=== PATIENT | female | born 1955 | race Caucasian/White ===

== ENCOUNTER 2016-05-24 04:52 | Emergency (ER) | payer BC ==
[2013-07-26 13:46] VITALS: BMI 129.2
[~2016-05-24 04:52] MED LIST: ADVAIR 500/501 DISK INH; ALLEGRA180 MG PO; CARTIA XT180 MG PO; COUMADIN5 MG PO; COZAAR100 MG PO; GLIPIZIDE10 MG; GLUCOTROL 5 MG T5 MG PO; INVOKANA300 MG PO; MAXZIDE-25 MG T1 TAB PO; NORCO 10/325 TA1 TA1 PO; OXYCODONE HCL5 MG PO; PRILOSEC20 MG PO; VICTOZA0.6 MG/0.1 SQ; ZYLOPRIM100 MG PO
[2016-05-24 05:42] LABS: BASOPHILS 0.3 % (0.0-2.0); EOSINOPHILS 1.7 % (0-7); HEMATOCRIT 37.8 % (36.0-48.0); HEMOGLOBIN 12.4 g/dL (12-16); IMMATURE GRANULOCYTES 0.1 % (0-5); LYMPHOCYTES 10.4 % (15-50); MCH 29.5 pg (26.0-34.0); MCHC 32.8 g/dL (31.0-37.0); MEAN PLATELET VOLUME 10.3 fL (7.4-10.4); MONOCYTES 8.8 % (2-11); NEUTROPHILS 78.7 % (40-80); RDW 15.5 % (11.5-14.5)
[2016-05-24 05:59] LABS: PLATELET COUNT 224 10x3/uL (130-400)
[2016-05-24 06:08] LABS: ALBUMIN 3.3 g/dL (3.4-5.0); ALKALINE PHOSPHATASE 139 U/L (46-116); ALT (SGPT) 100 U/L (10-68); BILIRUBIN - TOTAL 0.61 mg/dL (0.2-1.3); CALC OSMOLALITY 292 mosm/kg (275-300); CALCIUM 9.3 mg/dL (8.5-10.1); CARBON DIOXIDE 25.5 mmol/L (21.0-32.0); CHLORIDE - SERUM 108 mmol/L (98-107); CREATININE - SERUM 1.2 mg/dL (0.6-1.3); POTASSIUM - SERUM 3.9 mmol/L (3.5-5.1); PROTEIN - SERUM 6.5 g/dL (6.4-8.2); SODIUM 142 mmol/L (136-145); UREA NITROGEN 31 mg/dL (7-18); eGFR NON AFRICAN AMERICAN 48 mL/min (90-120)
[2016-05-24 06:14] LABS: GLUCOSE 153 mg/dL (74-106)
[2016-05-24 06:16] LABS: AMYLASE - SERUM 28 U/L (25-115); LIPASE 181 U/L (73-393); PRO BNP 17 pg/mL (0-125)
[2016-05-24 06:17] LABS: TROPONIN-I < 0.017 ng/mL (0.000-0.060)
== END 2016-05-24 06:34 | disposition home or self-care (01) ==
LOC: D.ER 04:52
PROVIDERS: Family Medicine
DX: K21.9 Gastro-esophageal reflux disease without esophagitis (principal); Z90.49 Acquired absence of other specified parts of digestive tract; I10 Essential (primary) hypertension; E11.9 Type 2 diabetes mellitus without complications

== ENCOUNTER → 2016-08-07 18:41 | Outpatient (CLI) | payer BC ==
[2013-07-26 13:46] VITALS: BMI 129.2
[2016-08-07 19:14] LABS: HEMOGLOBIN A1C 7.1 % (4.8-6.0)
== END | disposition home or self-care (01) ==
LOC: D.LABREF 18:41
PROVIDERS: Orthopaedic Surgery Sports Medicine
DX: M17.12 Unilateral primary osteoarthritis, left knee (principal); E11.9 Type 2 diabetes mellitus without complications

== ENCOUNTER → 2018-01-28 14:04 | Outpatient (CLI) | payer BC ==
[2013-07-26 13:46] VITALS: BMI 129.2
[2018-01-28 14:55] LABS: BASOPHILS 0.5 % (0-2); EOSINOPHILS 6.4 % (0-7); HEMATOCRIT 40.5 % (36.0-48.0); HEMOGLOBIN 13.4 g/dL (12-16); IMMATURE GRANULOCYTES 0.1 % (0-5); LYMPHOCYTES 15.6 % (15-50); MCH 29.9 pg (26.0-34.0); MCHC 33.1 g/dL (31.0-37.0); MCV 90.4 fL (80.0-100.0); MEAN PLATELET VOLUME 10.1 fL (7.4-10.4); MONOCYTES 8.9 % (2-11); NEUTROPHILS 68.5 % (40-80); RBC 4.48 10x6/uL (4.00-5.40); RDW 15.5 % (11.5-14.5); WBC 8.3 10x3/uL (4.8-10.8)
[2018-01-28 14:56] LABS: PLATELET COUNT 272 10x3/uL (130-400)
[2018-01-28 14:59] LABS: APPEARANCE CLEAR (CLEAR); COLOR YELLOW (YELLOW); SPECIFIC GRAVITY 1.015 (1.005-1.020)
[2018-01-28 15:00] LABS: BILIRUBIN NEGATIVE (NEGATIVE); GLUCOSE 1000 mg/dL (NEGATIVE); KETONE NEGATIVE (NEGATIVE); NITRITE NEGATIVE (NEGATIVE); PROTEIN NEGATIVE (NEGATIVE); UROBILINOGEN NORMAL (NORMAL)
[2018-01-28 15:09] LABS: CALC OSMOLALITY 289 mosm/kg (275-300); CALCIUM 9.2 mg/dL (8.5-10.1); CARBON DIOXIDE 27.9 mmol/L (21.0-32.0); CHLORIDE - SERUM 106 mmol/L (98-107); CREATININE - SERUM 0.8 mg/dL (0.6-1.3); GLUCOSE 186 mg/dL (74-106); POTASSIUM - SERUM 4.1 mmol/L (3.5-5.1); SODIUM 142 mmol/L (136-145); UREA NITROGEN 18 mg/dL (7-18); eGFR NON AFRICAN AMERICAN 76 mL/min (90-120)
[2018-01-28 15:09] LABS: INR 0.98 (0.85-1.17); PROTIME 12.6 SECONDS (11.6-15.0)
== END | disposition home or self-care (01) ==
LOC: D.LAB 14:04
PROVIDERS: Specialist
DX: Z01.812 Encounter for preprocedural laboratory examination (principal); I10 Essential (primary) hypertension; T14.8XXA Other injury of unspecified body region, initial encounter; Z79.1 Long term (current) use of non-steroidal anti-inflammatories (NSAID); X58.XXXA Exposure to other specified factors, initial encounter